=== PATIENT | female | born 1995 | race African-American/Black ===

== ENCOUNTER 2024-08-12 08:24 | Inpatient (IN) | payer OTHER ==
[2024-08-12] MEDS ORDERED: ONDANSETRON 4 MG/2 ML VIAL IVPUSH PRN (08:47)
[2024-08-12] MEDS: SODIUM CHLORIDE 500 ML IV ONE (09:00)
[2024-08-12] MEDS ORDERED: FENTANYL CITRATE/PF 50 MCG/ML VIAL ONE (09:01)
[2024-08-12] MEDS ORDERED: morphine SULFATE/PF 1 MG/2 ML (2cc Syringe - QUVA) ONE (09:01)
[2024-08-12] MEDS: CITRIC ACID/SODIUM CITRATE 30 ML UNIT-DOSE CUP PO ONE (09:45)
[2024-08-12 09:46] VITALS: BMI 31.3
[2024-08-12] MEDS: SODIUM CHLORIDE 1,000 ML IV SCH (10:00)
[2024-08-12] MEDS ORDERED: METHYLERGONOVINE MALEATE 0.2 MG/1 ML AMP IM PRN (10:52)
[2024-08-12] MEDS ORDERED: ELECTROLYTE-148 SOLN 1,000 ML IV SCH (11:00)
[2024-08-12] MEDS ORDERED: OXYTOCIN 10 UNITS/ML VIAL ONE (11:19)
[2024-08-12] MEDS ORDERED: ceFAZolin SODIUM 1 GM VIAL ONE (11:19)
[2024-08-12] MEDS ORDERED: KETOROLAC TROMETHAMINE 30 MG/1 ML VIAL ONE (11:19)
[2024-08-12] MEDS ORDERED: DEXAMETHASONE SOD PHOSPHATE 4 MG/1 ML VIAL ONE (11:19)
[2024-08-12] MEDS ORDERED: ONDANSETRON 4 MG/2 ML VIAL ONE (11:19)
[2024-08-12 11:57] LABS: HIV INTERPRETATION NEGATIVE (NEGATIVE)
[2024-08-12 12:57] LABS: CORD BASE EXCESS -4.1 mmol/L (0-2); CORD PCO2 44.1 mmHg (30-78); CORD pH 7.315 (7.14-7.44)
[2024-08-12 12:59] LABS: CORD HCO3 22.5 mmHg (20-29); CORD PCO2 49.6 mmHg (30-78); CORD pH 7.274 (7.14-7.44)
[2024-08-12] MEDS: OXYTOCIN 20 UNITS in 0.9% NS 20 UNIT/1,000 ML INFUS.BAG IV SCH (14:15)
[2024-08-12] MEDS ORDERED: OXYTOCIN 20 UNITS in 0.9% NS 20 UNIT/1,000 ML INFUS.BAG IV ONE (14:25)
[2024-08-12] MEDS: FERROUS SO4 325 MG TABLET (FP) PO SCH (21:53)
[2024-08-12] MEDS ORDERED: oxyCODONE HCL 5 MG TABLET PO PRN ×2 (22:52)
[2024-08-12] MEDS: IBUPROFEN 800 MG/8 ML IJ IVPB PRN (23:26)
[2024-08-12] MEDS: SIMETHICONE 80 MG TAB.CHEW (FP) PO PRN (23:26)
[2024-08-13 07:11] LABS: BASO % 0.3 % (0-2.0); EOS % 0.2 % (0-4.5); HEMATOCRIT 28.7 % (32.4-45.2); LYMPH % 22.9 % (8-40); MCH 23.8 pg (25.7-33.7); MCHC 31.2 g/dl (32.0-36.0); MEAN CELL VOLUME 76.3 fl (80-96); MEAN PLT VOLUME 8.4 fl (7.5-11.1); MONO % 7.8 % (3.8-10.2); NEUT % 68.8 % (42.8-82.8); PLATELET COUNT 225 10^3/uL (134-434); RBC 3.76 M/mm3 (3.60-5.2); RDW 18.5 % (11.6-15.6); WHITE BLOOD COUNT 11.1 K/mm3 (4.0-10.0)
[2024-08-13] MEDS: IBUPROFEN 600 MG TABLET (FP) PO PRN (08:29)
[2024-08-13] MEDS: PRENATAL VITAMINS W/ FOLIC ACID TABLET (FP) PO SCH (08:29)
[2024-08-13] MEDS: SENNOSIDES/DOCUSATE COMBO (SENNA PLUS) TABLET (UD) PO PRN (21:17)
[2024-08-14] MEDS: ACETAMINOPHEN 325 MG TABLET (FP) PO PRN (18:38)
[2024-08-14] MEDS: BISACODYL 10 MG SUPP.RECT RC PRN (22:16)
[2024-08-15 07:34] LABS: BASO % 0.5 % (0-2.0); EOS % 2.4 % (0-4.5); HEMATOCRIT 31.6 % (32.4-45.2); HEMOGLOBIN 9.8 GM/dL (10.7-15.3); LYMPH % 25.7 % (8-40); MCH 24.1 pg (25.7-33.7); MEAN CELL VOLUME 77.5 fl (80-96); MEAN PLT VOLUME 8.3 fl (7.5-11.1); MONO % 6.4 % (3.8-10.2); PLATELET COUNT 275 10^3/uL (134-434); RBC 4.07 M/mm3 (3.60-5.2); RDW 18.9 % (11.6-15.6); WHITE BLOOD COUNT 7.4 K/mm3 (4.0-10.0)
[2024-08-15 12:04] VITALS: BP 110/70; PULSE 66; RESP 17; TEMP 97.5
== END 2024-08-15 14:25 | disposition home or self-care (01) | DRG 540 ==
LOC: JLDR 08:24 → J3W 14:55
PROVIDERS: ADMIT Obstetrics & Gynecology; ATTEND Obstetrics & Gynecology
PROC: 10D00Z1 Extraction of Products of Conception, Low, Open Approach (ICD-10-PCS; principal; 2024-08-12)
PROC: 0UB10ZZ Excision of Left Ovary, Open Approach (ICD-10-PCS; 2024-08-12)
DX: O34.211 Maternal care for low transverse scar from previous cesarean delivery (principal); N85.8 Other specified noninflammatory disorders of uterus; O24.424 Gestational diabetes mellitus in childbirth, insulin controlled; O34.83 Maternal care for other abnormalities of pelvic organs, third trimester; N83.202 Unspecified ovarian cyst, left side; Z3A.38 38 weeks gestation of pregnancy; Z37.0 Single live birth
CPT/HCPCS: 36415; 36600; 59409; 80048; 82803; 82962; 85025; 85610; 85730; 86780; 86850; 86900; 86901; 87389; 88305-TC; 88307-TC